=== PATIENT | male | born 1960 | race Hispanic/Latino ===

== ENCOUNTER 2019-08-17 06:10 | Day surgery (SDC) | payer BC ==
[~2019-08-17 06:10] MED LIST: FAMOTIDINE 20 MG/2 ML INJ IV ONE; IOHEXOL 300 MG/ML 50ML IV ONE; LACTATED RINGERS 1,000 ML IV SCH
--- NOTE | 2019-08-17 07:09 | XRay Report ---
ABDOMEN 3 VIEW(S) INDICATION / CLINICAL INFORMATION: RT RENAL STONE. COMPARISON: None available. FINDINGS: TUBES / LINES: None. BOWEL GAS PATTERN: No significant abnormality. FREE AIR / EXTRALUMINAL GAS: None seen. ADDITIONAL FINDINGS: No appreciable urinary stone disease identified. Postoperative changes seen in t he pelvis. IMPRESSION: 1. No significant abnormality. Signer Name: Ramon Mock MD Signed: 08/17/2019 7:05 AM Workstation Name: [employer]
[2019-08-17] MEDS ORDERED: LIDOCAINE MPF (2%) 20 MG/1 ML VIAL 5 ML ONE (07:25)
[2019-08-17] MEDS ORDERED: fentaNYL 100 MCG/2 ML INJ ONE (07:26)
[2019-08-17] MEDS ORDERED: propofoL 200 MG/20 ML VIAL IV ONE (07:26)
--- NOTE | 2019-08-17 07:29 | Anesthesia Consultation ---
Anesthesia Consult and Med Hx Date of service: 08/17/19 - Airway Anesthetic Teeth Evaluation: Poor (several broken molars top and bottom right, top left) ROM Head & Neck: Adequate Mental/Hyoid Distance: Adequate Mallampati Class: Class III Intubation Access Assessment: Possibly Difficult - Pulmonary Exam CTA: Yes - Cardiac Exam Cardiac Exam: RRR - Pre-Operative Health Status ASA Pre-Surgery Classification: ASA1 Proposed Anesthetic Plan: General - Pulmonary Hx Smoking: No Hx Respiratory Symptoms: No Hx Sleep Apnea: No (REBEKAH PRE SCREEN LOW RISK.) - Cardiovascular System Hx Hypertension: No Hx Heart Attack/AMI: No (hx pericarditis in 1990s) Hx Percutaneous Transluminal Coronary Angioplasty (PTCA): No Hx Cardia Arrhythmia: No - Central Nervous System CVA: No - Gastrointestinal Hx Gastroesophageal Reflux Disease: Yes (well controlled; asymptomatic today) - Endocrine Hx Renal Disease: No Hx Liver Disease: No Hx Insulin Dependent Diabetes: No Hx Non-Insulin Dependent Diabetes: No Hx Thyroid Disease: No - Other Systems Hx Obesity: Yes (BMI 33) - Additional Comments Anesthesia Medical History Comments: No hx anesthetic complications.
--- NOTE | 2019-08-17 07:30 | Anesthesia Day of Surgery ---
Anesthesia Day of Surgery - Day of Surgery Patient Examined: Yes Patient H&P Reviewed: Yes Patient is NPO: Yes
[2019-08-17] MEDS ORDERED: fentaNYL 100 MCG/2 ML INJ IV PRN (08:00)
[2019-08-17] MEDS ORDERED: ceFAZolin/STERILE WATER 2 GM/20 ML SYRINGE IV NR (08:00)
[2019-08-17] MEDS ORDERED: ONDANSETRON 4 MG/2 ML INJ ONE (08:45)
[2019-08-17] MEDS ORDERED: IOHEXOL 300 MG/ML 50ML IV ONE (08:50)
--- NOTE | 2019-08-17 09:09 | Post Operative Note ---
Date of procedure: 08/17/19 Pre-op diagnosis: r ureterakl stone Post-op diagnosis: same Findings: stone Procedure: cysto ureteroscopy stent Anesthesia: GETA Surgeon: PEBBLES GUERRA Estimated blood loss: none Pathology: list (stone) Specimen disposition: given to patient/family Condition: stable Disposition: PACU
--- NOTE | 2019-08-17 09:10 | Discharge Summary ---
Short Stay Discharge Plan Activity: other (no straining ) Weight Bearing Status: Full Weight Bearing Diet: low fat, low cholesterol, low salt Special Instructions: other (inc fluids ) Durable Medical Equipment Needed Upon Discharge: other (j stent ) Follow up with: CARLIE BISWAS MD [Primary Care Provider] - 7 Days PEBBLES GUERRA MD [Staff Physician] - 7 Days
--- NOTE | 2019-08-17 09:43 | Operative Report ---
PREOPERATIVE DIAGNOSIS: Right ureteral stone for 4 months. POSTOPERATIVE DIAGNOSIS: Right ureteral stone for 4 months. PROCEDURE: Cystoscopy, right retrograde, right ureteral balloon dilatation, ureteroscopy, stone extraction, J stent. SURGEON: Dr. Petersen. ANESTHESIA: General. FINDINGS: This is a gentleman who has been suffering intermittent pain, right side. He now presents for treatment. DESCRIPTION OF PROCEDURE: The patient was brought to the operating room and placed on the operating table. Following induction of anesthesia, placed in lithotomy position, prepped and draped in usual sterile fashion. Cystourethroscopy showed a normal bladder. Retrograde showed a small stone in the distal ureter with mild hydroureter. Ureter balloon dilatation showed a wasting, which ended up opening up ureteroscopy, extract the stone. The patient tolerated the procedure well. No significant complications. Double J coiled in the upper pole. We left the string, brought to recovery in stable condition. JOB# [id number] RUDDY/ARELY
--- NOTE | 2019-08-17 09:48 | Fluoroscopy Report ---
FLUOROSCOPY RETROGRADE UROGRAPHY FLUOROSCOPY URETER/NEPHROSTOMY DILATATION RIGHT HISTORY: Right ureteral stone FINDINGS: 83 seconds of fluoroscopy time was provided by radiology during retrograde urography by the urologist. 8 fluoroscopic images are presented. The images demonstrate a filling defect in the dista l right ureter consistent with a stone. Right ureteroscopy was performed with stone extraction with a grasper. Subsequent images demonstrate placement of a right ureteral stent with good drainage of the right collecting system on the final image. No images of the left collecting system are provided. Pl ease correlate with the procedural notes as needed. Signer Name: Benji Giron Jr, MD Signed: 08/17/2019 9:43 AM Workstation Name: [id number]
[2019-08-17 10:11] VITALS: BP 126/81
--- NOTE | 2019-08-17 14:11 | Post Anesthesia Evaluation ---
- Post Anesthesia Evaluation Patient Participated: Yes Airway Patent: Yes Stable Respiratory Function: Yes Nausea/Vomiting: No Temp > 96.8F: Yes Pain Manageable: Yes Adequeate Hydration: Yes Anesthesia Complications: No
== END 2019-08-17 06:11 | disposition home or self-care (01) ==
LOC: OR 06:10
PROVIDERS: ATTEND Urology
DX: N20.1 Calculus of ureter (principal); K21.9 Gastro-esophageal reflux disease without esophagitis; Z79.899 Other long term (current) drug therapy; Z98.890 Other specified postprocedural states
CPT/HCPCS: 52332; 52352; 74018; 74420; 74485; C1758; C2617; J2405; J2704; J3010; J7120; Q9967